=== PATIENT | female | born 1940 | race Caucasian/White ===

== ENCOUNTER 2018-05-03 12:00 | Inpatient (IN) | payer OTHER ==
[~2018-05-03] VITALS: Ht 152.4 cm; Wt 66.7 kg
[2018-05-03] MEDS ORDERED: DILTIAZEM 24HR180 MG PO (15:19)
[2018-05-03] MEDS ORDERED: SPIRIVA RESPIMAT4 G1 IH (15:20)
[2018-05-03] MEDS ORDERED: HYDROCHLOROTH12.5 M1 PO (15:20)
[2018-05-11] MEDS ORDERED: GABAPENTIN800 MG PO (08:08)
[2018-05-11] MEDS ORDERED: DOCUSATE SODIU100 MG PO (08:08)
[2018-05-11] MEDS ORDERED: AMOX-CLAV 875-1 EACH PO (08:09)
[2018-05-11] MEDS ORDERED: PERCOCET 5-3251 EACH PO (08:10)
[2018-05-11] MEDS ORDERED: CLONAZEPAM1 MG PO (08:10)
== END 2018-05-11 16:18 | disposition home or self-care (01) | DRG 455 ==
LOC: O/R 05-10 05:35 → SURH 05-10 05:35 → O/R 05-10 12:00 → SURH 05-10 15:45 → O/R 05-10 16:00 → SURH 05-11 16:18
PROVIDERS: Orthopaedic Surgery Orthopaedic Surgery of the Spine
PROC: 0SG0071 Fusion of Lumbar Vertebral Joint with Autologous Tissue Substitute, Posterior Approach, Posterior Column, Open Approach (ICD-10-PCS; 2018-05-10)
PROC: 0ST20ZZ Resection of Lumbar Vertebral Disc, Open Approach (ICD-10-PCS; 2018-05-10)
PROC: 0SG00AJ Fusion of Lumbar Vertebral Joint with Interbody Fusion Device, Posterior Approach, Anterior Column, Open Approach (ICD-10-PCS; 2018-05-10)
PROC: 07DS3ZZ Extraction of Vertebral Bone Marrow, Percutaneous Approach (ICD-10-PCS; 2018-05-10)
PROC: 0SG00A0 Fusion of Lumbar Vertebral Joint with Interbody Fusion Device, Anterior Approach, Anterior Column, Open Approach (ICD-10-PCS; principal; 2018-05-10 16:00)
DX: M47.26 Other spondylosis with radiculopathy, lumbar region (principal); M48.061 Spinal stenosis, lumbar region without neurogenic claudication; M41.86 Other forms of scoliosis, lumbar region; M51.36 Other intervertebral disc degeneration, lumbar region; I10 Essential (primary) hypertension